=== PATIENT | female | born 1970 | race Hispanic/Latino ===

== ENCOUNTER 2019-01-10 12:18 | Emergency (ER) | payer SELFPAY ==
[~2019-01-10] VITALS: Ht 160 cm; Wt 90.9 kg
[~2019-01-10 12:18] MED LIST: ACID REFLUX MED; FLONASE0.05 %; LASIX; ULTRAM50 MG OR; ZPAK PO; ZYRTEC ALLGY10 MG OR
[2019-01-10] MEDS ORDERED: METOPROLOL SUCC50 MG PO (12:37)
[2019-01-10] MEDS ORDERED: QMIIZ ODT15 MG PO (12:38)
[2019-01-10 13:06] LABS: HEMATOCRIT 40.2 % (37.0-47.0); IMMATURE GRANULOCYTES 0.2 % (0.0-5.0); MEAN CELL VOLUME 81.9 fL CALC (80.0-100.0); MEAN CORPUSCULAR HGB 26.5 pG CALC (26.0-32.0); MEAN CORPUSCULAR HGB CONC 32.3 g/L CALC (32.0-36.0); NEUT# 3.02 thou/uL (2.00-7.15); RED BLOOD COUNT 4.91 mill/uL (4.20-5.60); RED CELL DISTRI WIDTH 13.1 % (11.5-15.5)
[2019-01-10 13:17] LABS: ALBUMIN 4.5 g/dL (3.2-5.0); ALKALINE PHOSPHATASE 103 u/l (38-126); ANION GAP 15 (6-22 (CALC)); BILIRUBIN, TOTAL 0.3 mg/dL (0.0-1.4); BUN 16 mg/dL (7-17); BUN/CREATININE RATIO 27 (12-20 (CALC)); CARBON DIOXIDE 26 mmol/l (22-30); CHLORIDE 104 mmol/l (95-108); CREATININE 0.6 mg/dL (0.5-1.0); GFR > 60 ML/MIN (>=60 (CALC)); GFR FOR AFR.AMER. > 60 ML/MIN (>=60 (CALC)); POTASSIUM 3.9 mmol/l (3.5-5.1); SGOT/AST 25 u/l (14-36); SODIUM 141 mmol/l (137-146)
[2019-01-10 14:29] LABS: URINE BILIRUBIN - DIPSTICK NEGATIVE (NEGATIVE); URINE BLOOD DIPSTICK NEGATIVE (NEGATIVE); URINE COLOR YELLOW; URINE GLUCOSE - DIPSTICK NEGATIVE (NEGATIVE); URINE KETONE NEGATIVE (NEGATIVE); URINE LEUK ESTERASE NEGATIVE (NEGATIVE); URINE NITRITE - DIPSTICK NEGATIVE (Negative); URINE PROTEIN - DIPSTICK NEGATIVE (NEG-TRACE); URINE SPECIFIC GRAVITY <=1.005; URINE UROBILINOGEN - DIPSTICK 0.2 E.U./dL (0.2)
[2019-01-10] MEDS ORDERED: MEDDOSEPAK PO (14:55)
[2019-01-10] MEDS ORDERED: PROVENTIL108 MCG/AC IN (14:55)
[2019-01-10 15:02] VITALS: BP 128/60
== END 2019-01-10 15:02 | disposition home or self-care (01) | DRG 313 ==
LOC: ED 12:18
DX: R07.89 Other chest pain (principal); J45.909 Unspecified asthma, uncomplicated; I10 Essential (primary) hypertension

== ENCOUNTER 2019-04-28 | Emergency (ER) | payer SELFPAY ==
[~2019-04-28] MED LIST changes: +MEDDOSEPAK PO; +METOPROLOL SUCC50 MG PO; +PROVENTIL108 MCG/AC IN; +QMIIZ ODT15 MG PO
[2019-04-28] MEDS ORDERED: LASIX 40 MG TAB40 MG PO (21:24)
[2019-04-28] MEDS ORDERED: TAM75CAP PO (21:42)
== END 2019-04-28 22:35 | disposition home or self-care (01) | DRG 153 ==
DX: J11.1 Influenza due to unidentified influenza virus with other respiratory manifestations (principal); I10 Essential (primary) hypertension